=== PATIENT | male | born 1995 | race American Indian/Alaskan Native ===

== ENCOUNTER 2019-06-07 02:06 | Emergency (ER) | payer SELFPAY ==
[2019-06-07] MEDS ORDERED: AZITHROMYCIN 250 MG TAB PO ONE (02:52)
[2019-06-07] MEDS ORDERED: LIDOCAINE-MPF (1%) 10 MG/1 ML VIAL 5 ML INFILTRATI ONE (02:52)
--- NOTE | 2019-06-07 03:30 | Emergency Department Report ---
ED Male HPI - General Chief complaint: Urogenital-Male Stated complaint: PENILE INJURY/BROKEN SKIN/BRUISED Time Seen by Provider: 06/07/19 02:47 Source: patient Mode of arrival: Ambulatory Limitations: No Limitations - History of Present Illness Initial comments: Patient is a 23-year-old male who is presenting with penile pain. Patient states she's been having pain since sexual activity is worried he may have a penile fracture. Patient states that he's visiting [place] and has been having vigorous sex. Patient states that he does have some pain under his foreskin. Patient is not circumcised. Patient denies penile discharge or dysuria. Patient states is been no testicular pain or swelling. - Related Data Previous Rx's Medication Instructions Recorded Last Taken Type Clindamycin Phosphate [Cleocin T 1 applicatio TP TID #30 gel..gram. 06/07/19 Unknown Rx 1% TOPICAL GEL] Ibuprofen [Motrin 800 MG tab] 800 mg PO Q8HR PRN #10 tablet 06/07/19 Unknown Rx Valacyclovir HCl [Valtrex] 1,000 mg PO BID 7 Days tablet 06/07/19 Unknown Rx traMADol [Ultram] 50 mg PO Q6HR PRN #12 tablet 06/07/19 Unknown Rx Allergies Allergy/AdvReac Type Severity Reaction Status Date / Time No Known Allergies Allergy Unverified 06/07/19 02:15 ED Review of Systems ROS: Stated complaint: PENILE INJURY/BROKEN SKIN/BRUISED Other details as noted in HPI Comment: All other systems reviewed and negative ED Past Medical Hx - Past Medical History Previous Medical History?: No - Surgical History Past Surgical History?: No - Social History Smoking Status: Current Every Day Smoker Substance Use Type: Marijuana - Medications Home Medications: Home Medications Medication Instructions Recorded Confirmed Last Taken Type Clindamycin Phosphate [Cleocin T 1 applicatio TP TID #30 gel..gram. 06/07/19 Unknown Rx 1% TOPICAL GEL] Ibuprofen [Motrin 800 MG tab] 800 mg PO Q8HR PRN #10 tablet 06/07/19 Unknown Rx Valacyclovir HCl [Valtrex] 1,000 mg PO BID 7 Days tablet 06/07/19 Unknown Rx traMADol [Ultram] 50 mg PO Q6HR PRN #12 tablet 06/07/19 Unknown Rx ED Physical Exam - General Limitations: No Limitations General appearance: alert, in no apparent distress - Head Head exam: Present: atraumatic, normocephalic - Eye Eye exam: Present: normal appearance, PERRL, EOMI - ENT ENT exam: Present: mucous membranes moist - Neck Neck exam: Present: normal inspection - Respiratory Respiratory exam: Present: normal lung sounds bilaterally. Absent: respiratory distress, wheezes, rales, rhonchi - Cardiovascular Cardiovascular Exam: Present: regular rate, normal rhythm, normal heart sounds. Absent: systolic murmur, diastolic murmur, rubs, gallop - GI/Abdominal GI/Abdominal exam: Present: soft, normal bowel sounds. Absent: distended, tenderness, guarding, rebound, rigid - Rectal Rectal exam: Present: deferred - exam: Present: other (patient is uncircumcised. Patient has pain with retracting the foreskin. There is no swelling to the foreskin. At the patient's frenulum the patient has several shallow ulcer like rounded lesions along the junction of the foreskin and the glans. These are painful to palpation.). Absent: normal inspection - Extremities Exam Extremities exam: Present: normal inspection - Back Exam Back exam: Present: normal inspection - Neurological Exam Neurological exam: Present: alert, oriented X3 - Psychiatric Psychiatric exam: Present: normal affect, normal mood - Skin Skin exam: Present: warm, dry, intact, normal color. Absent: rash ED Medical Decision Making - Medical Decision Making Patient states that his foreskin was forcefully retracted and these small lesions could be skin tears however herpetic lesions cannot be ruled out. Swabs were taken for herpes infection. Patient be started on a second liter as well as medications for symptomatic relief and the patient be discharged home. Patient to follow medical records for results. Critical care attestation.: If time is entered above; I have spent that time in minutes in the direct care of this critically ill patient, excluding procedure time. ED Disposition Clinical Impression: Penile lesion Disposition: [id number] TO HOME OR SELFCARE Is pt being admited?: No Does the pt Need Aspirin: No Condition: Stable Additional Instructions: Please follow up with medical records in 3-4 days for results of your herpes swab Referrals: TRISTON CRESPO MD [Referring] - 3-5 Days Time of Disposition: 03:34
[2019-06-07 07:38] VITALS: BP 127/76
== END 2019-06-07 04:10 | disposition home or self-care (01) ==
LOC: ED 02:06
DX: N48.9 Disorder of penis, unspecified (principal); F17.200 Nicotine dependence, unspecified, uncomplicated; F12.10 Cannabis abuse, uncomplicated
CPT/HCPCS: 36415; 87255; 96372; 99282; J0696